=== PATIENT | female | born 1990 | race Native Hawaiian/Other Pacific Islander ===

== ENCOUNTER 2022-04-02 15:33 | Emergency (ER) | payer SELFPAY ==
[2022-04-02 16:01] VITALS: BP 145/85
== END 2022-04-03 01:00 | disposition left against medical advice (07) ==
LOC: ED 15:33
DX: O20.9 Hemorrhage in early pregnancy, unspecified (principal); Z53.21 Procedure and treatment not carried out due to patient leaving prior to being seen by health care provider; Z3A.01 Less than 8 weeks gestation of pregnancy